=== PATIENT | female | born 1945 | race African-American/Black ===

== ENCOUNTER → 2017-06-07 | Day surgery (SDC) | payer MEDICARE ==
[~2017-06-07] MED LIST: ACETAMINOPHEN 325MG TABLET PO PRN; ASPIRIN/SOD BICARB/CITRIC ACID 324MG TAB EFF ONE; FENTANYL CITRATE/PF 50MCG/ML 2ML VIAL ONE; HEPARIN SODIUM 1,000 UNIT/1ML VIAL IV ONE; IODIXANOL 320MG/ML 100 ML BOTTLE IV ONE; LIDOCAINE HCL 1% 20ML VIAL (Pyxis) INJ ONE; MIDAZOLAM HCL 2 MG/2 ML VIAL ONE; MORPHINE SULFATE 2 MG/ML CPJ (NOT FOR IM USE) IV PRN; NICARDIPINE 100MCG/ML 10ML VIAL (CATH LAB) IV ONE; NITROGLYCERIN 50MCG/ML 10ML VIAL (CATH LAB) IV ONE; ONDANSETRON HCL 4MG/2ML VIAL IV PRN
== END | disposition home or self-care (01) ==
LOC: CCL 07:17
PROVIDERS: ATTEND Specialist
DX: I25.10 Atherosclerotic heart disease of native coronary artery without angina pectoris (principal); J44.9 Chronic obstructive pulmonary disease, unspecified; I10 Essential (primary) hypertension; E11.9 Type 2 diabetes mellitus without complications; K21.9 Gastro-esophageal reflux disease without esophagitis; Z88.6 Allergy status to analgesic agent
CPT/HCPCS: 82962; 93458; 99152; 99153; C1769; C1893; J1644; J2250; J3010; J3490; Q9967

== ENCOUNTER 2018-06-17 10:57 | Inpatient (IN) | payer MEDICARE ==
[~2018-06-17] VITALS: Ht 154.9 cm; Wt 106.1 kg
[2018-06-17] MEDS ORDERED: METHYLPREDNISOLONE SOD SUCC 125 MG/2 ML VIAL IV STA (11:24)
[2018-06-17] MEDS ORDERED: LEVOFLOXACIN 750MG PREMIX 150 ML IV ONE (11:30)
[2018-06-17] MEDS ORDERED: IPRATROPIUM/ALBUTEROL 0.5-3(2.5)MG/3ML NEB HHN ONE (11:30)
[2018-06-17 12:25] LABS: BG BASE EXCESS 0.7 mmol/L (-2.0-2.0); BG CARBOXYHEMOGLOBIN 1.1 % (0.5-1.5); BG DEOXYHEMOGLOBIN 5.1 % (0.0-5.0); BG FRACTION INSPIRED OXYGEN 21; BG HCO3 ACT 23.8 mmol/L (22.0-26.0); BG METHEMOGLOBIN 0.3 % (0.0-1.5); BG OXYGEN SATURATION 94.8 % (92.0-98.5); BG OXYHEMOGLOBIN 93.5 % (94.0-97.0); BG PCO2 33.5 mmHg (35.0-45.0); BG PH 7.469 (7.350-7.450); BG PO2 73.4 mmHg (75.0-100.0); BG SAMPLE SITE RIGHT BRACHIAL; BG TOTAL HEMOGLOBIN 13.8 g/dL (12.0-18.0); BG VENT MODE ROOM AIR
[2018-06-17 14:47] LABS: BASOPHILS % 0.2 % (0.0-2.0); EOSINOPHILS % 1.7 % (0.0-5.0); HEMATOCRIT. 44.2 % (36.0-48.0); HEMOGLOBIN. 14.6 g/dL (12.0-16.0); LYMPHOCYTES % 19.2 % (20.0-50.0); MEAN CORPUSCULAR HEMOGLOBIN 30.9 pg (28.0-32.0); MEAN CORPUSCULAR VOLUME 93.9 fL (81.0-99.0); MEAN PLATELET VOLUME 8.4 fl (7.4-10.4); MONOCYTES % 6.8 % (2.0-8.0); NEUTROPHILS % 72.1 % (40.0-76.0); PLATELET 261 x1000/uL (130-400); RED BLOOD CELL COUNT 4.71 mill/uL (4.2-5.4); RED CELL DISTRIBUTION WIDTH 14.6 % (11.6-14.6)
[2018-06-17 14:51] LABS: CHLORIDE 105 mEq/L (98-107)
[2018-06-17 14:53] LABS: PARTIAL THROMBOPLASTIN TIME 24.8 sec (23.4-31.0); PROTHROMBIN TIME 10.1 sec (9.1-11.1)
[2018-06-17] MEDS ORDERED: METHYLPREDNISOLONE SOD SUCC 125 MG/2 ML VIAL ONE (15:55)
[2018-06-17] MEDS ORDERED: IPRATROPIUM/ALBUTEROL 0.5-3(2.5)MG/3ML NEB ONE (16:03)
[2018-06-17 21:15] VITALS: BP 119/95
[2018-06-17 22:15] VITALS: BP 119/95
[2018-06-17] MEDS ORDERED: DEXTROSE 50% WATER 50ML SYRINGE IV PRN (22:30)
[2018-06-17] MEDS ORDERED: [UNRECOGNIZED DRUG - OTHER] IH SCH (22:45)
[2018-06-17] MEDS ORDERED: PREGABALIN 75MG CAPSULE PO PRN (22:45)
[2018-06-17] MEDS ORDERED: FLUTICASONE IH SCH (22:45)
[2018-06-17] MEDS ORDERED: VILANTER IH SCH (22:45)
[2018-06-17] MEDS ORDERED: UMECLIDIN IH SCH (22:45)
[2018-06-17] MEDS ORDERED: POTA10TA19 PO (23:03)
[2018-06-17] MEDS ORDERED: SPIR25TA6 PO (23:03)
[2018-06-17] MEDS ORDERED: AMLO10TA80 PO (23:03)
[2018-06-17] MEDS ORDERED: INSU100I28 SQ (23:03)
[2018-06-17] MEDS ORDERED: FERR325T6 PO (23:03)
[2018-06-17] MEDS ORDERED: LOSA1TAB34 PO (23:03)
[2018-06-17] MEDS ORDERED: PREG75CA PO (23:03)
[2018-06-17] MEDS ORDERED: CLOP75TA33 PO (23:03)
[2018-06-17] MEDS ORDERED: OMEP20CA10 PO (23:03)
[2018-06-17] MEDS ORDERED: GLIM2TAB2 PO (23:03)
[2018-06-17] MEDS ORDERED: FURO20TA4 PO (23:03)
[2018-06-17] MEDS ORDERED: PIOG30TA70 PO (23:03)
[2018-06-17] MEDS ORDERED: CHOL200074 PO (23:03)
[2018-06-17] MEDS ORDERED: FLUT1BLS3 IH (23:03)
[2018-06-17] MEDS ORDERED: FEXO180T87 PO (23:03)
[2018-06-17] MEDS ORDERED: FENT1PAT TD (23:03)
[2018-06-17] MEDS ORDERED: P20 PO (23:03)
[2018-06-17] MEDS ORDERED: ESOM20CA PO (23:03)
[2018-06-17] MEDS ORDERED: LEVO112T2 PO (23:03)
[2018-06-17] MEDS ORDERED: ROSU10TA25 PO (23:03)
[2018-06-17] MEDS ORDERED: DULO60CA63 PO (23:03)
[2018-06-17] MEDS ORDERED: SITA1TAB6 PO (23:03)
[2018-06-17] MEDS ORDERED: ALBU90AE IH (23:03)
[2018-06-17] MEDS ORDERED: MONT10TA24 PO (23:03)
[2018-06-17] MEDS ORDERED: PRAV40TA58 PO (23:03)
[2018-06-17] MEDS ORDERED: THEO400T PO (23:03)
[2018-06-17] MEDS ORDERED: ONDANSETRON HCL 4MG/2ML INJ IV PRN (23:30)
[2018-06-17] MEDS ORDERED: MAGNESIUM HYDROXIDE 400MG/5ML 30ML UDC PO PRN (23:30)
[2018-06-18] MEDS: IPRATROPIUM/ALBUTEROL 0.5-3(2.5)MG/3ML NEB HHN SCH ×6 (00:22→20:29)
[2018-06-18] MEDS: SODIUM CHLORIDE 0.45% 1,000 ML IV SCH (01:07)
[2018-06-18] MEDS: AZITHROMYCIN 500 MG in DEXT 5% WATER 250 ML IV SCH (01:07)
[2018-06-18 04:00] VITALS: BP_SYST 112; BP_DIAS 46; BP_DIAS 56
[2018-06-18] MEDS: OMEPRAZOLE 20MG CAPSULE EXTENDED RELEASE PO SCH (06:19)
[2018-06-18] MEDS: LEVOTHYROXINE SODIUM 112MCG TABLET PO SCH (06:19)
[2018-06-18] MEDS: INSULIN LISPRO 100 UNITS/ML SUBCUT SCH ×4 (06:22→21:48)
[2018-06-18 06:24] LABS: HEMATOCRIT. 38.5 % (36.0-48.0); HEMOGLOBIN. 12.8 g/dL (12.0-16.0); MEAN CORPUSCULAR HEMOGLOBIN 31.3 pg (28.0-32.0); MEAN CORPUSCULAR VOLUME 93.9 fL (81.0-99.0); MEAN PLATELET VOLUME 8.6 fl (7.4-10.4); PLATELET 212 x1000/uL (130-400); RED BLOOD CELL COUNT 4.11 mill/uL (4.2-5.4); RED CELL DISTRIBUTION WIDTH 14.7 % (11.6-14.6)
[2018-06-18 06:38] LABS: CHLORIDE 103 mEq/L (98-107)
[2018-06-18 06:46] LABS: PHOSPHORUS 3.7 mg/dL (2.5-4.9)
[2018-06-18] MEDS ORDERED: [UNRECOGNIZED DRUG - OTHER] SQ SCH (07:10)
[2018-06-18] MEDS ORDERED: INSULIN GLARGINE HUM REC ANLOG 28 UNIT SQ SCH (07:10)
[2018-06-18] MEDS: BLOOD SUGAR DIAGNOSTIC STRIP TEST SCH ×4 (07:18→21:48)
[2018-06-18] MEDS ORDERED: INSULIN LISPRO 100 UNITS/ML SUBCUT SCH (07:40)
[2018-06-18 08:30] VITALS: BP 122/50
[2018-06-18] MEDS ORDERED: METFORMIN HCL PO SCH (09:00)
[2018-06-18] MEDS ORDERED: ROSUVASTATIN CALCIUM 10 MG PO SCH (09:00)
[2018-06-18] MEDS ORDERED: MEDICATION NOT ON FORMULARY EA (Losartan/Hydrochlorothiazide (Losartan-Hctz 50-12.5 Mg T PO SCH (09:00)
[2018-06-18] MEDS ORDERED: [UNRECOGNIZED DRUG - REMARK] PO SCH (09:00)
[2018-06-18] MEDS ORDERED: [UNRECOGNIZED DRUG - OTHER] PO SCH (09:00)
[2018-06-18] MEDS ORDERED: SITAGLIPTIN PHOS PO SCH (09:00)
[2018-06-18] MEDS: METFORMIN HCL 500MG TABLET PO SCH ×2 (09:17→17:48)
[2018-06-18] MEDS: CHOLECALCIFEROL (D3) 1000 UNIT TABLET PO SCH (09:19)
[2018-06-18] MEDS: GLIMEPIRIDE 2MG TABLET PO SCH ×2 (09:19→17:48)
[2018-06-18] MEDS: LINAGLIPTIN 5MG TABLET PO SCH (09:19)
[2018-06-18] MEDS: PREDNISONE 20MG TABLET PO SCH ×2 (09:20→17:48)
[2018-06-18] MEDS: CETIRIZINE 10MG TABLET PO SCH (09:20)
[2018-06-18] MEDS: PIOGLITAZONE 15MG TABLET PO SCH (09:20)
[2018-06-18] MEDS: SPIRONOLACTONE 25MG TABLET PO SCH ×2 (09:20→17:49)
[2018-06-18] MEDS: CLOPIDOGREL 75MG TABLET PO SCH (09:20)
[2018-06-18] MEDS: LOSARTAN POTASSIUM 50 MG TABLET PO SCH (09:20)
[2018-06-18] MEDS: FUROSEMIDE 20MG TABLET PO SCH (09:20)
[2018-06-18] MEDS: FERROUS SULFATE 325MG TABLET PO SCH ×3 (09:20→17:48)
[2018-06-18] MEDS: POTASSIUM CHLORIDE 10MEQ TABLET SR PO SCH (09:22)
[2018-06-18] MEDS: HYDROCHLOROTHIAZIDE 12.5MG CAPSULE PO SCH (09:22)
[2018-06-18] MEDS: AMLODIPINE 10MG TABLET PO SCH (09:22)
[2018-06-18] MEDS: DULOXETINE HCL 60MG DR CAPSULE PO SCH ×2 (09:23→17:49)
[2018-06-18] MEDS: ENOXAPARIN 30MG/0.3ML SYR SUBCUT SCH ×2 (09:24→21:37)
[2018-06-18] MEDS: INSULIN GLARGINE UD 100 UNITS/ML SYR SUBCUT SCH ×2 (09:31→21:47)
[2018-06-18 12:00] VITALS: BP 148/46
[2018-06-18] MEDS: LEVOFLOXACIN 500MG PREMIX 100 ML IV SCH (13:04)
[2018-06-18] MEDS: ACETAMINOPHEN 325MG TABLET PO PRN (13:41)
[2018-06-18 16:00] VITALS: BP 115/48
[2018-06-18] MEDS ORDERED: FENTANYL 25MCG/HR PATCH TOP SCH (16:30)
[2018-06-18 20:00] VITALS: BP 108/49
[2018-06-18 21:24] LABS: PLATELET ESTIMATE NORMAL
[2018-06-18] MEDS: ATORVASTATIN CALCIUM 10MG TABLET PO SCH (21:37)
[2018-06-18] MEDS: MONTELUKAST SODIUM 10MG TABLET PO SCH (21:37)
[2018-06-19 00:09] VITALS: BP 110/54
[2018-06-19] MEDS: IPRATROPIUM/ALBUTEROL 0.5-3(2.5)MG/3ML NEB HHN SCH ×7 (00:30→23:45)
[2018-06-19] MEDS: AZITHROMYCIN 500 MG in DEXT 5% WATER 250 ML IV SCH (02:30)
[2018-06-19] MEDS: SODIUM CHLORIDE 0.45% 1,000 ML IV SCH (02:33)
[2018-06-19 04:00] VITALS: BP 102/36
[2018-06-19] MEDS: BLOOD SUGAR DIAGNOSTIC STRIP TEST SCH ×4 (06:20→21:59)
[2018-06-19] MEDS: LEVOTHYROXINE SODIUM 112MCG TABLET PO SCH (06:21)
[2018-06-19] MEDS: OMEPRAZOLE 20MG CAPSULE EXTENDED RELEASE PO SCH (06:21)
[2018-06-19] MEDS: INSULIN LISPRO 100 UNITS/ML SUBCUT SCH ×4 (06:25→21:59)
[2018-06-19 07:04] LABS: BASOPHILS % 0.1 % (0.0-2.0); HEMATOCRIT. 37.3 % (36.0-48.0); HEMOGLOBIN. 12.4 g/dL (12.0-16.0); LYMPHOCYTES % 7.9 % (20.0-50.0); MEAN CORPUSCULAR HEMOGLOBIN 31.1 pg (28.0-32.0); MEAN CORPUSCULAR VOLUME 93.9 fL (81.0-99.0); MEAN PLATELET VOLUME 8.5 fl (7.4-10.4); PLATELET 211 x1000/uL (130-400); RED BLOOD CELL COUNT 3.97 mill/uL (4.2-5.4); RED CELL DISTRIBUTION WIDTH 14.6 % (11.6-14.6)
[2018-06-19 07:18] LABS: CHLORIDE 106 mEq/L (98-107)
[2018-06-19 07:23] LABS: PHOSPHORUS 3.2 mg/dL (2.5-4.9)
[2018-06-19 08:00] VITALS: BP 126/52
[2018-06-19] MEDS: HYDROCHLOROTHIAZIDE 12.5MG CAPSULE PO SCH (09:27)
[2018-06-19] MEDS: GLIMEPIRIDE 2MG TABLET PO SCH ×2 (09:27→18:22)
[2018-06-19] MEDS: CETIRIZINE 10MG TABLET PO SCH (09:27)
[2018-06-19] MEDS: SPIRONOLACTONE 25MG TABLET PO SCH ×2 (09:27→18:23)
[2018-06-19] MEDS: LOSARTAN POTASSIUM 50 MG TABLET PO SCH (09:27)
[2018-06-19] MEDS: CHOLECALCIFEROL (D3) 1000 UNIT TABLET PO SCH (09:27)
[2018-06-19] MEDS: FUROSEMIDE 20MG TABLET PO SCH (09:27)
[2018-06-19] MEDS: POTASSIUM CHLORIDE 10MEQ TABLET SR PO SCH (09:27)
[2018-06-19] MEDS: DULOXETINE HCL 60MG DR CAPSULE PO SCH ×2 (09:28→18:22)
[2018-06-19] MEDS: CLOPIDOGREL 75MG TABLET PO SCH (09:28)
[2018-06-19] MEDS: AMLODIPINE 10MG TABLET PO SCH (09:28)
[2018-06-19] MEDS: FERROUS SULFATE 325MG TABLET PO SCH ×3 (09:28→18:23)
[2018-06-19] MEDS: PREDNISONE 20MG TABLET PO SCH ×2 (09:28→18:22)
[2018-06-19] MEDS: METFORMIN HCL 500MG TABLET PO SCH ×2 (09:28→18:22)
[2018-06-19] MEDS: LINAGLIPTIN 5MG TABLET PO SCH (09:28)
[2018-06-19] MEDS: PIOGLITAZONE 15MG TABLET PO SCH (09:29)
[2018-06-19] MEDS: ENOXAPARIN 30MG/0.3ML SYR SUBCUT SCH ×2 (09:29→21:46)
[2018-06-19] MEDS: INSULIN GLARGINE UD 100 UNITS/ML SYR SUBCUT SCH ×2 (09:34→21:59)
[2018-06-19 11:52] LABS: T4 FREE 1.2 ng/dL (0.76-1.46)
[2018-06-19 12:00] VITALS: BP 138/56
[2018-06-19] MEDS: LEVOFLOXACIN 500MG PREMIX 100 ML IV SCH (14:13)
[2018-06-19] MEDS: ACETAMINOPHEN 325MG TABLET PO PRN (14:13)
[2018-06-19 16:00] VITALS: BP 132/58
[2018-06-19 20:00] VITALS: BP 133/63
[2018-06-19] MEDS: ATORVASTATIN CALCIUM 10MG TABLET PO SCH (21:46)
[2018-06-19] MEDS: MONTELUKAST SODIUM 10MG TABLET PO SCH (21:46)
[2018-06-20] VITALS: BP 130/46
[2018-06-20] MEDS: AZITHROMYCIN 500 MG in DEXT 5% WATER 250 ML IV SCH (01:36)
[2018-06-20] MEDS: SODIUM CHLORIDE 0.45% 1,000 ML IV SCH (01:45)
[2018-06-20 04:00] VITALS: BP 125/54
[2018-06-20] MEDS: IPRATROPIUM/ALBUTEROL 0.5-3(2.5)MG/3ML NEB HHN SCH ×5 (04:46→22:14)
[2018-06-20] MEDS: LEVOTHYROXINE SODIUM 112MCG TABLET PO SCH (06:13)
[2018-06-20] MEDS: OMEPRAZOLE 20MG CAPSULE EXTENDED RELEASE PO SCH (06:13)
[2018-06-20] MEDS: BLOOD SUGAR DIAGNOSTIC STRIP TEST SCH ×4 (06:47→21:51)
[2018-06-20] MEDS: INSULIN LISPRO 100 UNITS/ML SUBCUT SCH ×4 (06:47→21:50)
[2018-06-20 06:50] LABS: HEMATOCRIT. 36.9 % (36.0-48.0); HEMOGLOBIN. 12.3 g/dL (12.0-16.0); MEAN CORPUSCULAR HEMOGLOBIN 31.2 pg (28.0-32.0); MEAN CORPUSCULAR VOLUME 93.6 fL (81.0-99.0); MEAN PLATELET VOLUME 8.8 fl (7.4-10.4); PLATELET 204 x1000/uL (130-400); RED BLOOD CELL COUNT 3.95 mill/uL (4.2-5.4); RED CELL DISTRIBUTION WIDTH 14.7 % (11.6-14.6)
[2018-06-20 07:02] LABS: CHLORIDE 106 mEq/L (98-107)
[2018-06-20 07:13] LABS: LDL CHOLESTEROL 45 mg/dL (5-100)
[2018-06-20 07:14] LABS: PHOSPHORUS 3.5 mg/dL (2.5-4.9)
[2018-06-20 07:15] LABS: HDL CHOLESTEROL 64 mg/dL (40-59)
[2018-06-20 08:00] VITALS: BP 148/58
[2018-06-20] MEDS: PIOGLITAZONE 15MG TABLET PO SCH (09:08)
[2018-06-20] MEDS: CETIRIZINE 10MG TABLET PO SCH (09:08)
[2018-06-20] MEDS: CHOLECALCIFEROL (D3) 1000 UNIT TABLET PO SCH (09:08)
[2018-06-20] MEDS: PREDNISONE 20MG TABLET PO SCH ×2 (09:09→17:26)
[2018-06-20] MEDS: HYDROCHLOROTHIAZIDE 12.5MG CAPSULE PO SCH (09:09)
[2018-06-20] MEDS: FUROSEMIDE 20MG TABLET PO SCH (09:09)
[2018-06-20] MEDS: GLIMEPIRIDE 2MG TABLET PO SCH ×2 (09:09→17:26)
[2018-06-20] MEDS: SPIRONOLACTONE 25MG TABLET PO SCH ×2 (09:09→17:27)
[2018-06-20] MEDS: POTASSIUM CHLORIDE 10MEQ TABLET SR PO SCH (09:09)
[2018-06-20] MEDS: LOSARTAN POTASSIUM 50 MG TABLET PO SCH (09:09)
[2018-06-20] MEDS: FERROUS SULFATE 325MG TABLET PO SCH ×3 (09:09→17:24)
[2018-06-20] MEDS: METFORMIN HCL 500MG TABLET PO SCH ×2 (09:09→17:27)
[2018-06-20] MEDS: ENOXAPARIN 30MG/0.3ML SYR SUBCUT SCH ×2 (09:10→21:45)
[2018-06-20] MEDS: LINAGLIPTIN 5MG TABLET PO SCH (09:10)
[2018-06-20] MEDS: CLOPIDOGREL 75MG TABLET PO SCH (09:10)
[2018-06-20] MEDS: AMLODIPINE 10MG TABLET PO SCH (09:10)
[2018-06-20] MEDS: DULOXETINE HCL 60MG DR CAPSULE PO SCH ×2 (09:12→17:27)
[2018-06-20] MEDS: INSULIN GLARGINE UD 100 UNITS/ML SYR SUBCUT SCH ×2 (09:16→21:50)
[2018-06-20] MEDS ORDERED: CLONIDINE 0.2MG TABLET PO PRN (11:30)
[2018-06-20] MEDS ORDERED: CLONIDINE 0.1MG TABLET PO PRN (11:30)
[2018-06-20 12:00] VITALS: BP 125/48
[2018-06-20] MEDS: LEVOFLOXACIN 500MG PREMIX 100 ML IV SCH (13:18)
[2018-06-20] MEDS: ACETAMINOPHEN 325MG TABLET PO PRN (13:21)
[2018-06-20 16:00] VITALS: BP 135/47
[2018-06-20 16:44] LABS: PLATELET ESTIMATE NORMAL
[2018-06-20 20:00] VITALS: BP 126/54
[2018-06-20] MEDS: ATORVASTATIN CALCIUM 10MG TABLET PO SCH (21:44)
[2018-06-20] MEDS: MONTELUKAST SODIUM 10MG TABLET PO SCH (21:44)
[2018-06-21] VITALS: BP 138/49
[2018-06-21] MEDS: SODIUM CHLORIDE 0.45% 1,000 ML IV SCH (00:37)
[2018-06-21] MEDS: AZITHROMYCIN 500 MG in DEXT 5% WATER 250 ML IV SCH (00:37)
[2018-06-21] MEDS: IPRATROPIUM/ALBUTEROL 0.5-3(2.5)MG/3ML NEB HHN SCH ×3 (01:02→08:07)
[2018-06-21 04:00] VITALS: BP 133/55
[2018-06-21] MEDS: ACETAMINOPHEN 325MG TABLET PO PRN (05:06)
[2018-06-21] MEDS: LEVOTHYROXINE SODIUM 112MCG TABLET PO SCH (06:27)
[2018-06-21] MEDS: INSULIN LISPRO 100 UNITS/ML SUBCUT SCH (06:32)
[2018-06-21] MEDS: BLOOD SUGAR DIAGNOSTIC STRIP TEST SCH (06:32)
[2018-06-21 07:53] LABS: CHLORIDE 106 mEq/L (98-107)
[2018-06-21 08:00] VITALS: BP 121/48
[2018-06-21] MEDS: AMLODIPINE 10MG TABLET PO SCH (08:31)
[2018-06-21] MEDS: PIOGLITAZONE 15MG TABLET PO SCH (08:32)
[2018-06-21] MEDS: SPIRONOLACTONE 25MG TABLET PO SCH (08:32)
[2018-06-21] MEDS: FERROUS SULFATE 325MG TABLET PO SCH (08:32)
[2018-06-21] MEDS: LOSARTAN POTASSIUM 50 MG TABLET PO SCH (08:32)
[2018-06-21] MEDS: FUROSEMIDE 20MG TABLET PO SCH (08:33)
[2018-06-21] MEDS: METFORMIN HCL 500MG TABLET PO SCH (08:33)
[2018-06-21] MEDS: GLIMEPIRIDE 2MG TABLET PO SCH (08:33)
[2018-06-21] MEDS: HYDROCHLOROTHIAZIDE 12.5MG CAPSULE PO SCH (08:33)
[2018-06-21] MEDS: DULOXETINE HCL 60MG DR CAPSULE PO SCH (08:33)
[2018-06-21] MEDS: CHOLECALCIFEROL (D3) 1000 UNIT TABLET PO SCH (08:34)
[2018-06-21] MEDS: POTASSIUM CHLORIDE 10MEQ TABLET SR PO SCH (08:34)
[2018-06-21] MEDS: CLOPIDOGREL 75MG TABLET PO SCH (08:34)
[2018-06-21] MEDS: LINAGLIPTIN 5MG TABLET PO SCH (08:35)
[2018-06-21] MEDS: PREDNISONE 20MG TABLET PO SCH (08:35)
[2018-06-21] MEDS: ENOXAPARIN 30MG/0.3ML SYR SUBCUT SCH (08:36)
[2018-06-21] MEDS: CETIRIZINE 10MG TABLET PO SCH (08:42)
[2018-06-21 08:52] LABS: HEMATOCRIT. 41.2 % (36.0-48.0); HEMOGLOBIN. 13.4 g/dL (12.0-16.0); MEAN CORPUSCULAR HEMOGLOBIN 30.8 pg (28.0-32.0); MEAN CORPUSCULAR VOLUME 94.7 fL (81.0-99.0); MEAN PLATELET VOLUME 8.8 fl (7.4-10.4); PLATELET 205 x1000/uL (130-400); RED BLOOD CELL COUNT 4.36 mill/uL (4.2-5.4); RED CELL DISTRIBUTION WIDTH 14.7 % (11.6-14.6)
[2018-06-21] MEDS ORDERED: FAMOTIDINE 20MG TABLET PO SCH (09:00)
[2018-06-21] MEDS: INSULIN GLARGINE UD 100 UNITS/ML SYR SUBCUT SCH (10:45)
[2018-06-21] MEDS ORDERED: LEVOFLOXACIN 500MG TABLET PO SCH (11:00)
[2018-06-21 13:04] LABS: PLATELET ESTIMATE NORMAL
[2018-06-21] MEDS ORDERED: AZITHROMYCIN 500 MG TABLET PO SCH (21:00)
== END 2018-06-21 11:15 | disposition home health service (06) | DRG 193 ==
LOC: ER 12:08 → EDBEDREQTM 15:51 → EDBEDREQ 15:51 → ENRESERV 19:59 → 8WST 21:21
PROVIDERS: ADMIT Internal Medicine; ATTEND Internal Medicine
DX: J18.9 Pneumonia, unspecified organism (principal); J96.00 Acute respiratory failure, unspecified whether with hypoxia or hypercapnia; J45.901 Unspecified asthma with (acute) exacerbation; J45.902 Unspecified asthma with status asthmaticus; J47.0 Bronchiectasis with acute lower respiratory infection; Z68.41 Body mass index [BMI] 40.0-44.9, adult; I25.10 Atherosclerotic heart disease of native coronary artery without angina pectoris; I10 Essential (primary) hypertension; E03.9 Hypothyroidism, unspecified; E78.00 Pure hypercholesterolemia, unspecified; E78.5 Hyperlipidemia, unspecified; M19.90 Unspecified osteoarthritis, unspecified site; G89.4 Chronic pain syndrome; E66.9 Obesity, unspecified; I27.20 Pulmonary hypertension, unspecified; I49.3 Ventricular premature depolarization; M79.7 Fibromyalgia; F32.9 Major depressive disorder, single episode, unspecified; E11.51 Type 2 diabetes mellitus with diabetic peripheral angiopathy without gangrene; E11.42 Type 2 diabetes mellitus with diabetic polyneuropathy; M81.0 Age-related osteoporosis without current pathological fracture; Z79.4 Long term (current) use of insulin; Z82.49 Family history of ischemic heart disease and other diseases of the circulatory system; Z83.3 Family history of diabetes mellitus; Z86.73 Personal history of transient ischemic attack (TIA), and cerebral infarction without residual deficits; Z87.11 Personal history of peptic ulcer disease; Z99.81 Dependence on supplemental oxygen; Z88.6 Allergy status to analgesic agent; Z79.899 Other long term (current) drug therapy
CPT/HCPCS: 36415; 36600; 71045; 71250; 80048; 80061; 82375; 82805; 82962; 83036; 83605; 83735; 83880; 84100; 84439; 84443; 84481; 84484; 85651; 93005; 93306; 93970; 94640; 97162; 97166; 99285; J0456; J1650; J1815; J1956; J2930; J7060; J7512; J7620

== ENCOUNTER → 2021-08-10 | Outpatient (CLI) | payer MEDICARE ==
[~2021-08-10] MED LIST changes: -ACETAMINOPHEN 325MG TABLET PO PRN; +ALBU90AE IH; +AMLO10TA80 PO; -ASPIRIN/SOD BICARB/CITRIC ACID 324MG TAB EFF ONE; +CHOL200074 PO; +CLOP75TA33 PO; +DULO60CA64 PO; +ESOM20CA PO; +FENT1PAT TD; -FENTANYL CITRATE/PF 50MCG/ML 2ML VIAL ONE; +FERR325T6 PO; +FEXO180T87 PO; +FLUT1BLS3 IH; +FURO20TA4 PO; +GLIM2TAB30 PO; -HEPARIN SODIUM 1,000 UNIT/1ML VIAL IV ONE; +INSU100I28 SQ; -IODIXANOL 320MG/ML 100 ML BOTTLE IV ONE; +LEVO112T2 PO; -LIDOCAINE HCL 1% 20ML VIAL (Pyxis) INJ ONE; +LOSA1TAB34 PO; -MIDAZOLAM HCL 2 MG/2 ML VIAL ONE; +MONT10TA32 PO; -MORPHINE SULFATE 2 MG/ML CPJ (NOT FOR IM USE) IV PRN; -NICARDIPINE 100MCG/ML 10ML VIAL (CATH LAB) IV ONE; -NITROGLYCERIN 50MCG/ML 10ML VIAL (CATH LAB) IV ONE; +OMEP20CA14 PO; -ONDANSETRON HCL 4MG/2ML VIAL IV PRN; +P20 PO; +PIOG30TA70 PO; +POTA10TA19 PO; +PRAV40TA58 PO; +PREG75CA PO; +ROSU10TA25 PO; +SITA1TAB6 PO; +SPIR25TA6 PO; +THEO400T PO
== END | disposition home or self-care (01) ==
LOC: LAB 08:40
PROVIDERS: ATTEND Specialist
DX: R05.9 Cough, unspecified (principal); Z20.822 Contact with and (suspected) exposure to COVID-19
CPT/HCPCS: C9803; U0003; U0005

== ENCOUNTER → 2021-08-11 | Day surgery (SDC) | payer MEDICARE ==
[~2021-08-11] VITALS: Ht 154.9 cm; Wt 101.2 kg
[~2021-08-11] MED LIST changes: +ACETAMINOPHEN 325MG TABLET PO PRN; +AMLODIPINE 5MG TABLET PO NR; +HEPARIN SODIUM 1,000 UNIT/1ML VIAL IV ONE; +MORPHINE SULFATE 2 MG/ML CPJ (NOT FOR IM USE) IV PRN; +ONDANSETRON HCL 4MG/2ML INJ IV PRN
== END | disposition home or self-care (01) ==
LOC: CCL 07:00
PROVIDERS: ATTEND Specialist
DX: I25.10 Atherosclerotic heart disease of native coronary artery without angina pectoris (principal); I10 Essential (primary) hypertension; J44.9 Chronic obstructive pulmonary disease, unspecified; E03.9 Hypothyroidism, unspecified; E11.9 Type 2 diabetes mellitus without complications; E78.5 Hyperlipidemia, unspecified; M06.9 Rheumatoid arthritis, unspecified; G47.33 Obstructive sleep apnea (adult) (pediatric); Z79.82 Long term (current) use of aspirin; Z79.4 Long term (current) use of insulin; Z79.899 Other long term (current) drug therapy; Z98.890 Other specified postprocedural states; Z88.8 Allergy status to other drugs, medicaments and biological substances; Z82.49 Family history of ischemic heart disease and other diseases of the circulatory system; Z79.1 Long term (current) use of non-steroidal anti-inflammatories (NSAID); Z88.6 Allergy status to analgesic agent
CPT/HCPCS: 93005; 93458; C1769; C1887; C1893; J1644; J2250; J3010; J3490; Q9967